=== PATIENT | female | born 2000 | race Two or more races ===

== ENCOUNTER 2022-12-18 17:39 | Observation (INO) | payer MEDICAID, OTHER ==
[~2022-12-18] VITALS: Ht 165.1 cm; Wt 72.6 kg
[2022-12-18] MEDS ORDERED: NIFEdipine 10 MG CAP PO ONE (19:30)
[2022-12-18] MEDS ORDERED: TERBUTALINE SULFATE 1 MG/ML 1ML VIAL SC SCH (19:30)
[2022-12-18] MEDS ORDERED: BETAMETHASONE ACET (30mg/5ml) 5ml Vial 6mg/ml IM ONE (20:15)
== END 2022-12-18 20:31 | disposition home or self-care (01) ==
LOC: LDRP 17:39 → EDBD 17:39
PROVIDERS: ADMIT Obstetrics & Gynecology; ATTEND Obstetrics & Gynecology
DX: O60.03 Preterm labor without delivery, third trimester (principal); O42.913 Preterm premature rupture of membranes, unspecified as to length of time between rupture and onset of labor, third trimester; Z3A.34 34 weeks gestation of pregnancy
CPT/HCPCS: 59025; 81002; 84112; G0378; Q0114

== ENCOUNTER 2022-12-21 13:29 | Observation (INO) | payer MEDICAID ==
[~2022-12-21] VITALS: Ht 165.1 cm; Wt 72.6 kg
== END 2022-12-21 16:30 | disposition home or self-care (01) ==
LOC: LDRP 13:29
PROVIDERS: ADMIT Obstetrics & Gynecology; ATTEND Obstetrics & Gynecology
DX: O60.03 Preterm labor without delivery, third trimester (principal); O42.913 Preterm premature rupture of membranes, unspecified as to length of time between rupture and onset of labor, third trimester; Z3A.35 35 weeks gestation of pregnancy; Z53.29 Procedure and treatment not carried out because of patient's decision for other reasons
CPT/HCPCS: 59025; 81002; 94760; G0378

== ENCOUNTER → 2022-12-23 | Outpatient (CLI) | payer MEDICAID ==
[2022-12-23 12:02] LABS: Basophils # (auto) 0.1 10 ^3/uL (0-0.2); Basophils % (auto) 0.9 % (0.0-2.0); Eosinophils # (auto) 0.1 10 ^3/uL (0-0.8); Eosinophils % (auto) 0.5 % (0.0-7.0); Hematocrit 39.1 % (36.0-46.0); Lymphocytes # (auto) 2.1 10 ^3/uL (0.4-5.4); Lymphocytes % (auto) 17.6 % (10.0-50.0); Mean Corpuscular Hemoglobin 28.3 pg (28.0-32.0); Mean Corpuscular Hgb Conc. 33.2 g/dL (32.0-36.0); Mean Corpuscular Volume 85.2 fL (80.0-100.0); Monocytes # (auto) 0.7 10 ^3/uL (0-1.3); Monocytes % (auto) 5.5 % (0.0-12.0); Neutrophils # (auto) 9.1 10 ^3/uL (1.6-8.6); Neutrophils % (auto) 75.5 % (37.0-80.0); Red Blood Cells 4.58 10^6/uL (4.0-5.20); Red Cell Distribution Width 12.9 % (11.8-14.3); White Blood Cell 12.1 10^3/uL (4.4-10.8)
[2022-12-24 07:06] LABS: RPR Non Reactive (Non Reactive)
== END | disposition home or self-care (01) ==
LOC: LAB 11:41
PROVIDERS: ATTEND Obstetrics & Gynecology
DX: Z34.00 Encounter for supervision of normal first pregnancy, unspecified trimester (principal); Z3A.00 Weeks of gestation of pregnancy not specified
CPT/HCPCS: 36415; 84112; 85025; 86592

== ENCOUNTER 2022-12-28 08:55 | Observation (INO) | payer MEDICAID | END 2022-12-28 09:59 | disposition home or self-care (01) | LOC: UNDOADMOB 08:55 → LDRP 08:55 → UNDODISOB 09:59 | PROVIDERS: ADMIT Obstetrics & Gynecology; ATTEND Obstetrics & Gynecology | DX: O60.03 Preterm labor without delivery, third trimester (principal); O62.9 Abnormality of forces of labor, unspecified; Z3A.36 36 weeks gestation of pregnancy | CPT/HCPCS: 59025; 81002; 94760; G0378 ==

== ENCOUNTER 2023-01-04 10:09 | Observation (INO) | payer MEDICAID | END 2023-01-04 10:47 | disposition home or self-care (01) | LOC: LDRP 10:09 | PROVIDERS: ADMIT Obstetrics & Gynecology; ATTEND Obstetrics & Gynecology | DX: O60.03 Preterm labor without delivery, third trimester (principal); Z3A.37 37 weeks gestation of pregnancy | CPT/HCPCS: 59025; 81002; G0378 ==

== ENCOUNTER 2023-01-23 10:09 | Observation (INO) | payer MEDICAID | END 2023-01-23 12:40 | disposition home or self-care (01) | LOC: LDRP 10:09 | PROVIDERS: ADMIT Obstetrics & Gynecology; ATTEND Obstetrics & Gynecology | DX: O36.8393 Maternal care for abnormalities of the fetal heart rate or rhythm, unspecified trimester, fetus 3 (principal); O48.0 Post-term pregnancy; Z3A.40 40 weeks gestation of pregnancy | CPT/HCPCS: 59025; 76818; 81002; 94760; G0378 ==

== ENCOUNTER 2023-01-24 11:40 | Observation (INO) | payer MEDICAID ==
[2023-01-25] MEDS ORDERED: PREN-96 PO (21:40)
== END 2023-01-24 14:07 | disposition home or self-care (01) ==
LOC: LDRP 11:40
PROVIDERS: ADMIT Obstetrics & Gynecology; ATTEND Obstetrics & Gynecology
DX: O48.0 Post-term pregnancy (principal); Z3A.40 40 weeks gestation of pregnancy
CPT/HCPCS: 59025; 76818; 81002; 94760; G0378

== ENCOUNTER 2023-01-25 20:16 | Observation (INO) | payer MEDICAID ==
[2023-01-25] MEDS ORDERED: PREN-96 PO (21:40)
[2023-01-25 22:09] LABS: Fern Testing Negative
== END 2023-01-25 22:37 | disposition home or self-care (01) ==
LOC: LDRP 20:16
PROVIDERS: ADMIT Obstetrics & Gynecology; ATTEND Obstetrics & Gynecology
DX: O48.0 Post-term pregnancy (principal); O62.9 Abnormality of forces of labor, unspecified; Z3A.40 40 weeks gestation of pregnancy
CPT/HCPCS: 59025; 81002; 84112; G0378; Q0114

== ENCOUNTER 2023-01-26 12:14 | Observation (INO) | payer MEDICAID ==
[~2023-01-26 12:14] MED LIST: PREN-96 PO
== END 2023-01-26 13:41 | disposition home or self-care (01) ==
LOC: LDRP 12:14 → UNDOADMOB 12:14 → LDRP 12:26
PROVIDERS: ADMIT Obstetrics & Gynecology; ATTEND Obstetrics & Gynecology
DX: O48.0 Post-term pregnancy (principal); O62.9 Abnormality of forces of labor, unspecified; Z3A.40 40 weeks gestation of pregnancy
CPT/HCPCS: 59025; 76818; 81002; 94760; G0378

== ENCOUNTER 2023-01-28 09:21 | Observation (INO) | payer MEDICAID | END 2023-01-28 15:14 | disposition home or self-care (01) | LOC: LDRP 13:10 → UNDOADMOB 13:10 → LDRP 13:16 | PROVIDERS: ADMIT Obstetrics & Gynecology; ATTEND Obstetrics & Gynecology | DX: O48.0 Post-term pregnancy (principal); Z3A.40 40 weeks gestation of pregnancy | CPT/HCPCS: 59025; 76818; 81002; 94760; G0378 ==

== ENCOUNTER 2023-01-30 09:23 | Observation (INO) | payer MEDICAID | END 2023-01-30 11:23 | disposition home or self-care (01) | LOC: LDRP 09:23 | PROVIDERS: ADMIT Obstetrics & Gynecology; ATTEND Obstetrics & Gynecology | DX: O48.0 Post-term pregnancy (principal); O62.9 Abnormality of forces of labor, unspecified; Z3A.41 41 weeks gestation of pregnancy | CPT/HCPCS: 59025; 76818; 81002; 94760; G0378 ==

== ENCOUNTER 2023-01-31 15:10 | Inpatient (IN) | payer MEDICAID ==
[~2023-01-31] VITALS: Ht 165.1 cm; Wt 74.8 kg
[2023-01-31] MEDS ORDERED: LACTATED RINGER'S 1,000 ML IV SCH (15:30)
[2023-01-31] MEDS ORDERED: LIDOCAINE 2%HCL (LOCAL ANESTH.) INJ 20ML MDV IJ PRN (15:30)
[2023-01-31] MEDS ORDERED: PROMETHAZINE HCL 25 MG/ML 1ML IM PRN (15:30)
[2023-01-31] MEDS ORDERED: DERMOPLAST 60ML BOTTLE TOP PRN (15:30)
[2023-01-31] MEDS ORDERED: WITCH HAZEL-GLYCERIN PAD TOP PRN (15:30)
[2023-01-31] MEDS ORDERED: PROMETHAZINE HCL 25 MG/ML 1ML IV PRN (15:30)
[2023-01-31] MEDS ORDERED: PHISODERM TOP SOLN 240ML BTL TOP PRN (15:30)
[2023-01-31 15:46] LABS: Basophils # (auto) 0.1 10 ^3/uL (0-0.2); Basophils % (auto) 0.8 % (0.0-2.0); Eosinophils # (auto) 0.1 10 ^3/uL (0-0.8); Eosinophils % (auto) 0.4 % (0.0-7.0); Hematocrit 38.3 % (36.0-46.0); Lymphocytes # (auto) 1.3 10 ^3/uL (0.4-5.4); Lymphocytes % (auto) 8.6 % (10.0-50.0); Mean Corpuscular Hemoglobin 28.5 pg (28.0-32.0); Mean Corpuscular Hgb Conc. 33.9 g/dL (32.0-36.0); Monocytes # (auto) 0.9 10 ^3/uL (0-1.3); Monocytes % (auto) 5.6 % (0.0-12.0); Neutrophils % (auto) 84.6 % (37.0-80.0); Red Blood Cells 4.56 10^6/uL (4.0-5.20); Red Cell Distribution Width 13.3 % (11.8-14.3); White Blood Cell 15.4 10^3/uL (4.4-10.8)
[2023-01-31 15:51] LABS: Urine Bacteria FEW /hpf (None Seen); Urine Blood 2+ /uL (Negative); Urine Clarity HAZY (Clear); Urine Color Colorless (Yellow); Urine Hyaline Cast FEW /lpf (0 - 2); Urine Protein, UAD TRACE (Negative); Urine Specific Gravity 1.012 (1.001-1.035); Urine Urobilinogen Normal (Negative); Urine WBC 6 /hpf (0 - 5)
[2023-01-31 16:03] LABS: Amphetamine Screen, Urine Neg (NEGATIVE); Barbiturate Scree,Urine Neg (NEGATIVE); Benzodiazephine Screen, Urine Neg (NEGATIVE); Cannabinoid Screen, Urine Neg (NEGATIVE); Cocaine Screen, Urine Neg (NEGATIVE); Opiate Scree,Urine Neg (NEGATIVE); Phencyclidine Screen, Urine Neg (NEGATIVE)
[2023-01-31 16:05] LABS: Alanine Aminotransferase 14 U/L (7-40); Alkaline Phosphatase 165 U/L (46-116); Aspartate Aminotransferase 16 U/L (13-40); Bilirubin, Total 0.4 mg/dL (0.2-1.0); Calcium 9.2 mg/dL (8.5-10.1); Chloride 109 mmol/L (98-107); Glucose 91 mg/dL (74-106); Potassium 3.9 mmol/L (3.5-5.1); Sodium 137 mmol/L (136-145); Total Protein 6.5 g/dL (5.7-8.2)
[2023-01-31 16:13] LABS: BUN/Creatinine Ratio 8.1 (10.0-20.0); Blood Urea Nitrogen < 5 mg/dL (9-23)
[2023-01-31] MEDS ORDERED: TERBUTALINE SULFATE 1 MG/ML 1ML VIAL SC PRN (16:15)
[2023-01-31] MEDS ORDERED: LACT. RINGERS/OXYTOCIN 20UNITS 500 ML IV ONE ×2 (16:15→16:45)
[2023-01-31] MEDS ORDERED: SODIUM CHLORIDE 0.9% 1,000 ML IV SCH (16:15)
[2023-01-31] MEDS: LACTATED RINGER'S 1,000 ML IV SCH ×3 (16:15→23:44)
[2023-01-31 16:27] LABS: INR 0.96 (0.9-1.15); Partial Thromboplastin Time 32.8 SEC (24.5-34.5); Prothrombin Time 10.1 sec (9.3-11.8)
[2023-01-31] MEDS: LACT. RINGERS/OXYTOCIN 20UNITS 1,000 ML IV SCH (16:45)
[2023-01-31] MEDS ORDERED: ePHEDrine SULFATE 50 MG/ML AMP IV ONE ×2 (19:30→20:45)
[2023-01-31] MEDS ORDERED: LACTATED RINGER'S 1,000 ML IV ONE (19:30)
[2023-01-31] MEDS ORDERED: NALOXONE HCL 0.4 MG/ML VIAL IV ONE ×2 (19:30→20:45)
[2023-01-31] MEDS ORDERED: fentaNYL CITRATE 100 MCG/2 ML VL IV ONE ×2 (19:30→20:45)
[2023-01-31] MEDS ORDERED: Lidocaine W-Epinephrine 1.5%-1:200,000 INJ 10ml Vial IJ ONE (19:30)
[2023-01-31] MEDS ORDERED: LIDOCAINE HCL 2 %PF INJ 10ML AMP IJ ONE (19:30)
[2023-01-31] MEDS ORDERED: ROPIVACAINE HCL 200 ML EPI SCH ×2 (19:30→20:45)
[2023-01-31] MEDS: ceFAZolin 1GM/50ML 50 ML IV SCH (20:38)
[2023-01-31] MEDS ORDERED: SODIUM CHLORIDE 0.9% 500 ML IV PRN (20:45)
[2023-01-31] MEDS ORDERED: LACTATED RINGER'S 500 ML IV ONE ×2 (20:45)
[2023-02-01] MEDS: ACETAMINOPHEN 325 MG TAB PO PRN ×3 (00:31→22:16)
[2023-02-01] MEDS: LACTATED RINGER'S 1,000 ML IV SCH (01:30)
[2023-02-01] MEDS: ceFAZolin 1GM/50ML 50 ML IV SCH (04:11)
[2023-02-01] MEDS: LACT. RINGERS/OXYTOCIN 20UNITS 1,000 ML IV SCH (08:45)
[2023-02-01] MEDS ORDERED: METHYLERGONOVINE MALEATE 0.2 MG/ML AMP IM ONE (10:03)
[2023-02-01] MEDS ORDERED: miSOPROStol 100 mcg TAB ONE (10:03)
[2023-02-01] MEDS ORDERED: ACETAMINOPHEN 325 MG TAB PO PRN (11:45)
[2023-02-01] MEDS ORDERED: ONDANSETRON ODT 4 MG TAB PO PRN (11:45)
[2023-02-01] MEDS ORDERED: IBUPROFEN 800 MG TAB PO SCH (11:45)
[2023-02-01] MEDS ORDERED: IBUPROFEN 600 MG TAB PO PRN (11:45)
[2023-02-01 15:30] VITALS: BP 118/70; PULSE 69; RESP 16; TEMP 98.4; O2SAT 97
[2023-02-01 19:10] VITALS: BP 93/52; PULSE 86; RESP 16; TEMP 99.2
[2023-02-01] MEDS ORDERED: DOCUSATE SOD 100 MG CAP PO SCH (22:00)
[2023-02-01 22:37] VITALS: BP 99/58; PULSE 71; RESP 16; TEMP 97.6
[2023-02-02 03:04] VITALS: BP 99/56; PULSE 81; RESP 16; TEMP 98.7
[2023-02-02 06:53] VITALS: BP 100/54; PULSE 70; RESP 17; TEMP 98.3; O2SAT 97
[2023-02-02 07:06] LABS: RPR Non Reactive (Non Reactive)
[2023-02-02 10:45] VITALS: BP 93/53; PULSE 81; RESP 17; TEMP 98.4; O2SAT 97
[2023-02-03 20:06] LABS: Treponema pallidum Ab (FTA-Ab) Non Reactive (Non Reactive)
== END 2023-02-02 14:37 | disposition home or self-care (01) | DRG 560 ==
LOC: LDRP 15:10
PROVIDERS: ADMIT Obstetrics & Gynecology; ATTEND Obstetrics & Gynecology
PROC: 10E0XZZ Delivery of Products of Conception, External Approach (ICD-10-PCS; principal; 2023-02-01)
PROC: 3E0R3BZ Introduction of Anesthetic Agent into Spinal Canal, Percutaneous Approach (ICD-10-PCS; 2023-02-01)
PROC: 00HU33Z Insertion of Infusion Device into Spinal Canal, Percutaneous Approach (ICD-10-PCS; 2023-02-01)
PROC: 0W8NXZZ Division of Female Perineum, External Approach (ICD-10-PCS; 2023-02-01)
PROC: 0KQM0ZZ Repair Perineum Muscle, Open Approach (ICD-10-PCS; 2023-02-01)
DX: O70.1 Second degree perineal laceration during delivery (principal); Z37.0 Single live birth; Z3A.41 41 weeks gestation of pregnancy
CPT/HCPCS: 36415; 59025; 59409; 80053; 80307; 81001; 81002; 85025; 85610; 85730; 86592; 86850; 86900; 86901; 94762; 96360; 96361; 96365; 96366; 96374; 96375; G0378; J0690; J2590

== ENCOUNTER 2023-06-26 13:04 | Emergency (ER) | payer MEDICAID ==
[~2023-06-26] VITALS: Ht 165.1 cm; Wt 60.2 kg
[2023-06-26 13:49] VITALS: BP 119/56; PULSE 110; RESP 16; TEMP 99.7; O2SAT 98
[2023-06-26] MEDS ORDERED: methylPREDNISolone SOD SUCC 125 MG/2 ML VL IM ONE (14:15)
[2023-06-26] MEDS ORDERED: EPINEPHrine HCL 1 MG/1 ML AMP SC ONE (14:15)
[2023-06-26] MEDS ORDERED: PRED20TA2 PO (14:23)
[2023-06-26] MEDS ORDERED: HYDR25CA PO (14:23)
[2023-06-26] MEDS ORDERED: TRIA0.02 TOP (14:23)
== END 2023-06-26 14:51 | disposition home or self-care (01) ==
LOC: ER 13:04
DX: T78.40XA Allergy, unspecified, initial encounter (principal); Z79.899 Other long term (current) drug therapy; Y92.89 Other specified places as the place of occurrence of the external cause
CPT/HCPCS: 96372; 99284; J0171; J2930

== ENCOUNTER 2024-10-07 19:16 | Observation (INO) | payer MEDICAID ==
[~2024-10-07] VITALS: Ht 65 cm; Wt 71.7 kg
[~2024-10-07 19:16] MED LIST changes: +HYDR25CA PO; +PRED20TA2 PO; +TRIA0.02 TOP
[2024-10-07 20:01] LABS: Basophils # (auto) 0.1 10 ^3/uL (0-0.2); Basophils % (auto) 0.7 % (0.0-2.0); Eosinophils # (auto) 0.2 10 ^3/uL (0-0.8); Eosinophils % (auto) 1.5 % (0.0-7.0); Hematocrit 40.2 % (36.0-46.0); Hemoglobin 13.7 g/dL (12.2-16.2); Lymphocytes # (auto) 2.1 10 ^3/uL (0.4-5.4); Lymphocytes % (auto) 18.8 % (10.0-50.0); Mean Corpuscular Hemoglobin 29.4 pg (28.0-32.0); Mean Corpuscular Hgb Conc. 34.1 g/dL (32.0-36.0); Mean Corpuscular Volume 86.3 fL (80.0-100.0); Monocytes # (auto) 0.6 10 ^3/uL (0-1.3); Monocytes % (auto) 5.9 % (0.0-12.0); Neutrophils % (auto) 73.1 % (37.0-80.0); Nucleated Red Blood Cells % 0.1 %; Platelet Count (auto) 185 10^3/uL (140-450); Red Blood Cells 4.66 10^6/uL (4.0-5.20); Red Cell Distribution Width 12.9 % (11.8-14.3)
[2024-10-07 20:03] LABS: Urine Bacteria MOD /hpf (None Seen); Urine Blood Negative /uL (Negative); Urine Clarity Turbid (Clear); Urine Color Colorless (Yellow); Urine Protein, UAD Negative (Negative); Urine Specific Gravity 1.007 (1.001-1.035); Urine Squamous Epithelial Cell FEW /hpf (<5); Urine Urobilinogen Normal (Negative); Urine WBC 6 /HPF (0-5); Urine pH 7.5 (5.0-9.0)
[2024-10-07 20:12] LABS: Protein, Urine 6.1 mg/dL (1-14)
[2024-10-07 20:15] LABS: Creatinine, Urine 26.88 mg/dL (30.0-125.0); Urine Protein/Creatinine Ratio 0.23
[2024-10-07 20:16] LABS: INR 0.92 (0.9-1.15); Partial Thromboplastin Time 32.2 SEC (24.5-34.5); Prothrombin Time 9.8 sec (9.3-11.8)
[2024-10-07 20:20] LABS: Alanine Aminotransferase 13 U/L (7-40); Albumin 4.1 g/dL (3.2-4.8); Alkaline Phosphatase 77 U/L (46-116); Anion Gap 8 (5-15); Aspartate Aminotransferase 13 U/L (13-40); BUN/Creatinine Ratio 10.9 (10.0-20.0); Calcium 9.5 mg/dL (8.7-10.4); Carbon Dioxide 23 mmol/L (20-31); Potassium 3.9 mmol/L (3.5-5.1); Sodium 140 mmol/L (136-145); Total Protein 6.3 g/dL (5.7-8.2)
[2024-10-07 20:24] LABS: Bilirubin, Total 0.2 mg/dL (0.2-1.0); Blood Urea Nitrogen 6 mg/dL (9-23); Chloride 109 mmol/L (98-107); Glucose 109 mg/dL (74-106); Uric Acid 2.6 mg/dL (3.1-7.8)
--- NOTE | 2024-10-08 08:01 | DVHDS2 ---
Discharge Summary Date of Admission October 07, 2024 at 19:16 Date of Discharge: October 07, 2024 Labs/Diagnostic Data: Laboratory Results Test 10/07/24 19:52 10/07/24 19:47 White Blood Count 11.0 10^3/uL (4.4-10.8) Red Blood Count 4.66 10^6/uL (4.0-5.20) Hemoglobin 13.7 g/dL (12.2-16.2) Hematocrit 40.2 % (36.0-46.0) Mean Corpuscular Volume 86.3 fL (80.0-100.0) Mean Corpuscular Hemoglobin 29.4 pg (28.0-32.0) Mean Corpuscular Hemoglobin Concent 34.1 g/dL (32.0-36.0) Red Cell Distribution Width 12.9 % (11.8-14.3) Platelet Count 185 10^3/uL (140-450) Mean Platelet Volume 9.4 fL (6.9-10.8) Neutrophils (%) (Auto) 73.1 % (37.0-80.0) Lymphocytes (%) (Auto) 18.8 % (10.0-50.0) Monocytes (%) (Auto) 5.9 % (0.0-12.0) Eosinophils (%) (Auto) 1.5 % (0.0-7.0) Basophils (%) (Auto) 0.7 % (0.0-2.0) Neutrophils # (Auto) 8.0 10 ^3/uL (1.6-8.6) Lymphocytes # (Auto) 2.1 10 ^3/uL (0.4-5.4) Monocytes # (Auto) 0.6 10 ^3/uL (0-1.3) Eosinophils # (Auto) 0.2 10 ^3/uL (0-0.8) Basophils # (Auto) 0.1 10 ^3/uL (0-0.2) Nucleated Red Blood Cells 0.1 % Prothrombin Time 9.8 sec (9.3-11.8) Prothrombin Time INR 0.92 (0.9-1.15) Activated Partial Thromboplast Time 32.2 SEC (24.5-34.5) Sodium Level 140 mmol/L (136-145) Potassium Level 3.9 mmol/L (3.5-5.1) Chloride Level 109 mmol/L (98-107) Carbon Dioxide Level 23 mmol/L (20-31) Anion Gap 8 (5-15) Blood Urea Nitrogen 6 mg/dL (9-23) Creatinine 0.55 mg/dL (0.550-1.02) Glomerular Filtration Rate Calc 133 mL/min (>90) BUN/Creatinine Ratio 10.9 (10.0-20.0) Serum Glucose 109 mg/dL (74-106) Uric Acid 2.6 mg/dL (3.1-7.8) Calcium Level 9.5 mg/dL (8.7-10.4) Total Bilirubin 0.2 mg/dL (0.2-1.0) Aspartate Amino Transferase (AST) 13 U/L (13-40) Alanine Aminotransferase (ALT) 13 U/L (7-40) Alkaline Phosphatase 77 U/L (46-116) Total Protein 6.3 g/dL (5.7-8.2) Albumin 4.1 g/dL (3.2-4.8) Urine Color Colorless (Yellow) Urine Clarity Turbid (Clear) Urine pH 7.5 (5.0-9.0) Urine Specific [place] 1.007 (1.001-1.035) Urine Protein Negative (Negative) Urine Ketones Negative (Negative) Urine Blood Negative /uL (Negative) Urine Nitrite Negative (Negative) Urine Bilirubin Negative (Negative) Urine Urobilinogen Normal mg/dL (Negative) Urine Leukocyte Esterase 3+ /uL (Negative) Urine RBC 1 /hpf (0 - 4) Urine Microscopic WBC 6 /HPF (0-5) Urine Squamous Epithelial Cells Few /hpf (<5) Urine Bacteria Mod /hpf (None Seen) Urine Creatinine 26.88 mg/dL (30.0-125.0) Urine Protein/Creatinine Ratio 0.23 Urine Glucose 1+ mg/dL (Normal) Urine Total Protein 6.1 mg/dL (1-14) Other Laboratory Tests 10/07/24 19:52 Brief Hx & Hospital Course: Patient had a headache 31 week here for evaluation rule out PIH Condition at Discharge: Good Final Diagnosis/Problems List Veress 31 week reassuring no evidence PIHmucous information Discharge Disposition: Home Discharge Instruct/Medications Diet: Regular Activity: No Restrictions, As Tolerated Discharge Statement: "Patient was advised to return to the ER or call 911 if any headaches, dizziness, shortness of breath, chest pain, abdominal pain, bleeding, fevers, or worsening of medical condition. Patient was counseled about treatment plan, medications, possible side effects, patientverbalized understanding. All questions were answered to the best of my ability. This discharge took greater then 30 minutes in planning, reviewing documentation, counseling the patient, and discussing with other team members." ASSESSMENT ASSESSMENT Assessment Visit Coding OBGYN Date of Service: October 08, 2024 Billing Provider: TERA KERN DO [employer] Common Visit Codes: 52718-QGF/OBS SAME DATE (LOW), 78477-JWK/OBS SAME DATE (MOD) (It is she is the senior external), 35090-PXC/OBS SAME DATE (HIGH) [employer] Procedure Codes: 91910-58- NON-STRESS TEST TERA KERN DO October 08, 2024 08:01
== END 2024-10-07 21:16 | disposition home or self-care (01) ==
LOC: LDRP 19:16
PROVIDERS: ADMIT Obstetrics & Gynecology; ATTEND Obstetrics & Gynecology
DX: O26.893 Other specified pregnancy related conditions, third trimester (principal); R51.9 Headache, unspecified; R79.1 Abnormal coagulation profile; Z98.890 Other specified postprocedural states; Z79.899 Other long term (current) drug therapy; Z3A.00 Weeks of gestation of pregnancy not specified
CPT/HCPCS: 36415; 59025; 80053; 81001; 82570; 84156; 84550; 85025; 85610; 85730; 94760; G0378

== ENCOUNTER 2024-12-09 12:05 | Observation (INO) | payer MEDICAID ==
--- NOTE | 2024-12-09 13:01 | DVH ---
CLINICAL HISTORY: term COMPARISON: US BIOPHYSICAL PROFILE on DOS: 01/30/23, US BIOPHYSICAL PROFILE on DOS: 01/28/23, US BIOPHY SICAL PROFILE on DOS: 01/26/23 TECHNIQUE: biophysical profile was performed. Transabdominal sonographic images of the fetus we re obtained. FINDINGS: The fetus is in cephalic position. heart rate measures 126 BPM. Amniotic fluid index measures 12.6 cm. The placenta is posterior in position without evidence of previa or abruption seen. BPP profile is an overall score of 8/8, with 2/2 points for breathing, with at least one episode of breathing over a 30 second duration during a 30 minute observation, 2/2 points for m ovements, with 3 or more discrete body or limb movements, 2/2 points for tone, with one or more episodes of extremity extension with return to flexion, or opening and closing of hand, and 2/ 2 points for amniotic fluid, with at least 1 pocket of amniotic fluid that measures 2 cm in 2 perpend icular planes. IMPRESSION: BPP score of 8/8.
--- NOTE | 2024-12-10 08:19 | DVHDS2 ---
Physician Discharge Progress N Final Diagnosis: IUP AT 40WKS Operations or Procedures: Operations or Procedures NST REACTIVE REVIWED,SONO Condition on Discharge: Good Disposition: Home Discharge Instructions: Diet: Regular Activity: No Restrictions, As Tolerated Medications: NA Follow Up Care: Specialist: 2D Discharge Statement: "Patient was advised to return to the ER or call 911 if any headaches, dizziness, shortness of breath, chest pain, abdominal pain, bleeding, fevers, or worsening of medical condition. Patient was counseled about treatment plan, medications, possible side effects, patientverbalized understanding. All questions were answered to the best of my ability. This discharge took greater then 30 minutes in planning, reviewing documen tation, counseling the patient, and discussing with other team members." Visit Coding OBGYN Date of Service: Dec 09, 2024 Billing Provider: MERRY HAWLEY DO VIDEO TAPE DUPLICATOR Common Visit Codes: [id number] OBS CARE (HIGH) VIDEO TAPE DUPLICATOR Procedure Codes: 27473-51- NON-STRESS TEST MERRY HAWLEY DO Dec 10, 2024 08:19
== END 2024-12-09 14:04 | disposition home or self-care (01) ==
LOC: LDRP 12:05
PROVIDERS: ADMIT Obstetrics & Gynecology; ATTEND Obstetrics & Gynecology
DX: Z36.89 Encounter for other specified antenatal screening (principal); Z79.899 Other long term (current) drug therapy; Z3A.40 40 weeks gestation of pregnancy; Z98.890 Other specified postprocedural states
CPT/HCPCS: 59025; 76819; 81002; G0378

== ENCOUNTER 2024-12-10 21:34 | Inpatient (IN) | payer MEDICAID ==
[~2024-12-10] VITALS: Ht 165.1 cm; Wt 74.8 kg
[2024-12-10] MEDS ORDERED: NALBUPHINE HCL 10 MG/1ml INJECTION IV PRN (22:30)
--- NOTE | 2024-12-10 22:32 | DVHHP2 ---
OB CC & HPI Date Date of Admission: Dec 10, 2024 Patient Identification: : 2 Para: 1 EDC: Dec 09, 2024 EGA: 40w 1d Chief Complaints: Reason for admission: active labor Admission Nurse Assessment Rev: Yes History of Present Complaints 24yo G2, 1001 with EDC of 12/09/24, EGA 40w 1d, presents to Place with h/o contractions that started about 4 hours ago. She reports normal movements, no bleeding, ROM, FAJARDO vision changes or epigastric pain. Past Medical History Cardiac: No pertinent Hx Pulmonary: No pertinent Hx Central Nervous System: No pertinent Hx GI: No pertinent Hx Hemotology/Oncology: No pertinent Hx Hepatobiliary: No pertinent Hx Psychiatric: No pertinent Hx Musculoskeletal: No pertinent Hx Rheumotologic: No pertinent Hx Infectious Disease: No peritnent Hx ENT: No pertinent Hx Renal/: No pertinent Hx Endocrine: No pertinent Hx Dermatology: No pertinent Hx Past Surgical History: No pertinent Hx OB History OB History Care: Good Care Ultrasounds: Normal mid trimester US Obstetrical Complications: None Medical Complications: None Allergies: Coded Allergies: Ibuprofen (Verified Allergy, Intermediate, mouth and lips swell, 12/10/24) Home Meds Active Scripts Triamcinolone Acetonide (Triamcinolone Acetonide) 0.025 % Cre, 1 APPLIC TOP BID, #45 GRAMS Prov:REID JOSHUA 06/26/23 Prednisone (Prednisone) 20 Mg Tab, 40 MG PO DAILY for 10 Days, #20 MG Prov:REID JOSHUA 06/26/23 Hydroxyzine Pamoate (Vistaril) 25 Mg Cap, 1 CAP PO BID, #30 CAP Prov:REID JOSHUA 06/26/23 Reported Medications Vit W/ Ferrous Fumara ( One Daily) Daily Tab, 1 TAB PO DAILY, #90 TAB 3 Refills 01/25/23 Family & Social History Family/Social History Past Family/Social History: None Pertinent Blood Type: O+ Rubella: immune RPR/VDRL: Negative GBS Status: Negative HBsAG: Negative Review of Systems Constitutional: No symptom reported Ears, Nose, & Throat: No symptom reported Eyes: No symptom reported Pulmonary/Respiratory: No symptom reported Cardiovascular: No symptom reported Gastrointestinal: No symptom reported Genitourinary: No symptom reported Musculoskeletal: No symptom reported Skin: No symptom reported Psychiatric: No symptom reported Endocrine: No symptom reported Hemotologic/Lymphatic: No symptom reported All Other Systems Reproductive: Uterine Contractions OB Admission Exam Physical Exam Vitals: VSS HEENT: TMs Normal, Fontanelles Normal, Nasal Mucosa Normal, Eyes non-injected, Oropharynx Normal, PERRLA, Moist Membranes, EOMI Heart: Rhythm Normal Lungs: Clear Abdomen: Gravid (non-tender) Extremities: Normal Reflexes: Normal Cervical Dilatation: 5cm Effacement: 75% Station: -2 Membranes: Intact Heart Rate: 130's Accelerations: Accelerations Present Decelerations: No Decelerations Fpc Variability: Average (6-25) Contractions on Admission: 6-10 Minutes Apart Date/Time Contractions Began: 12/10/24 5pm Frequency of Contractions: every 5min Duration: 60secs Intensity: Moderate OB Plan Plan Admitting Diagnosis: IUP at 40w 1d Labor GBS Neg Category I FHR Tracing Plan: Expectant Management Other Plan: P Plan of care discussed with Patient and partner / family Process, Risks, benefits, of available management options discussed, including starting with expectant management, augmentation if indicated, Internal monitoring of UCs & FHT, AROM, amnioinfusion etc only when indicated Patient agrees to starting with expectant management at this time; other interventions as indicated Informed Consent obtained Consent for possible blood transfusion obtained. All questions answered. Admit to Place for Labor / IOL Routine L&D Admission orders EFM per policy Intrauterine resuscitation PRN Labor analgesia PRN Encourage ambulation and/exercises / frequent position change to facilitate labor & descent Supportive care Anticipate CNM will consult with Dr. Meadows PRN Visit Coding OBGYN Date of Service: Dec 10, 2024 Billing Provider: NICOLE DAILEY CNM 911 DISPATCHER Common Visit Codes: [id number] INP/OBS CARE (HIGH) 911 DISPATCHER Procedure Codes: 51586-65- NON-STRESS TEST NICOLE DAILEY CNM Dec 10, 2024 22:32
[2024-12-10 22:59] LABS: Urine Amorphous Crystal FEW /hpf (None Seen); Urine Protein, UAD Negative (Negative)
[2024-12-10 23:00] LABS: Hematocrit 39.6 % (36.0-46.0); Hemoglobin 13.5 g/dL (12.2-16.2); Mean Corpuscular Hemoglobin 29.5 pg (28.0-32.0); Mean Corpuscular Volume 86.1 fL (80.0-100.0); Nucleated Red Blood Cells % 0.0 %
[2024-12-10 23:15] LABS: INR 0.92 (0.9-1.15); Partial Thromboplastin Time 31.0 SEC (24.5-34.5); Prothrombin Time 9.8 sec (9.3-11.8)
[2024-12-10 23:15] LABS: Amphetamine Screen, Urine Neg (NEGATIVE); Barbiturate Scree,Urine Neg (NEGATIVE); Benzodiazephine Screen, Urine Neg (NEGATIVE); Cannabinoid Screen, Urine Neg (NEGATIVE); Cocaine Screen, Urine Neg (NEGATIVE); Opiate Scree,Urine Neg (NEGATIVE); Phencyclidine Screen, Urine Neg (NEGATIVE)
[2024-12-10 23:17] LABS: Alanine Aminotransferase 15 U/L (7-40); Albumin 4.1 g/dL (3.2-4.8); Anion Gap 11 (5-15); BUN/Creatinine Ratio 11.8 (10.0-20.0); Bilirubin, Total 0.4 mg/dL (0.2-1.0); Calcium 9.1 mg/dL (8.7-10.4); Glucose 91 mg/dL (74-106); Potassium 3.7 mmol/L (3.5-5.1); Sodium 139 mmol/L (136-145); Total Protein 6.4 g/dL (5.7-8.2)
[2024-12-10 23:22] LABS: Alkaline Phosphatase 124 U/L (46-116); Blood Urea Nitrogen 8 mg/dL (9-23); Carbon Dioxide 20 mmol/L (20-31); Chloride 108 mmol/L (98-107)
[2024-12-11] MEDS ORDERED: Lidocaine W-Epinephrine 1.5%-1:200,000 INJ 10ml Vial IJ ONE (00:30)
[2024-12-11] MEDS ORDERED: NALOXONE HCL 0.4 MG/ML VIAL IV ONE (00:30)
[2024-12-11] MEDS ORDERED: fentaNYL CITRATE 100 MCG/2 ML VL IV ONE (00:30)
[2024-12-11] MEDS ORDERED: LIDOCAINE HCL 2 %PF INJ 10ML AMP IJ ONE (00:30)
[2024-12-11] MEDS ORDERED: LACT. RINGERS/OXYTOCIN 20UNITS 1,000 ML IV ONE (00:31)
[2024-12-11] MEDS: WITCH HAZEL-GLYCERIN PAD TOP PRN (01:03)
[2024-12-11] MEDS: PHISODERM TOP SOLN 240ML BTL TOP PRN (01:03)
[2024-12-11] MEDS: DERMOPLAST 60ML BOTTLE TOP PRN (01:03)
[2024-12-11] MEDS: LIDOCAINE 2%HCL (LOCAL ANESTH.) INJ 20ML MDV IJ PRN (01:04)
[2024-12-11] MEDS: LACT. RINGERS/OXYTOCIN 20UNITS 500 ML IV ONE ×2 (01:05→01:06)
--- NOTE | 2024-12-11 01:05 | DVHPN2 ---
OB Labor Progress Note Date and Time Seen Date Seen: Dec 11, 2024 Time Seen: 00:20 Subjective Patient reports: Other (contractions and pressure feels stronger) Objective Vital Signs VSS Monitoring Method Monitoring Method: External Heart Rate Heart Rate Baseline: 130 Heart Rate Variability: Moderate Presence of FHR Accelerations: Yes Presence of FHR Decelerations: No Changes in Trends of Patterns: No Are all 5 Components of the FH: Yes Contractions Contractions Frequency: Other (2-3minutes) Duration of Contraction: 90 Contractions Intensity: Strong Contractions Resting Tone: Relaxed Membranes Membranes: Intact, Bulging Vaginal Exam Vag Exam Deferred: No Vaginal Exam Dilation: 8 Vaginal Exam Effacement: 100 Vaginal Exam Station: -1 Vaginal Exam Presentation: VTX Vaginal Exam Show: Small Medications Medications - Pitocin: No Medication - Epidural: No Medication - Other none Lab Results Lab Results Vital Signs Date Time Temp Pulse Resp B/P (MAP) Pulse Ox O2 Delivery O2 Flow Rate FiO2 12/11/24 03:00 98.8 81 16 110/59 (76) 96 98.8 12/11/24 02:30 Room Air I & O 12/11/24 07:00 Intake Total 1000 ml Output Total 900 ml Balance 100 ml Intake Oral 1000 ml Output Urine Total 900 ml Current Medications Medications (Trade) Dose Ordered Sig/Jayesh Start Time Stop Time Status Last Admin Dose Admin Lactated Ringer's 1,000 ml @ 125 mls/hr Q8H 12/10/24 22:30 12/11/24 01:07 125 MLS/HR Nalbuphine HCl (Nubain) 10 mg Q4HP PRN 12/10/24 22:30 Tana Ramos (Tucks) 1 pad PRN PRN 12/10/24 22:30 12/11/24 01:03 1 PAD Sodium Lauryl Sulfate (Phisoderm) 240 ml PRN PRN 12/10/24 22:30 12/11/24 01:03 240 ML Benzocaine (Dermoplast) 1 applic PRN PRN 12/10/24 22:30 12/11/24 01:03 1 APPLIC Lidocaine HCl (Xylocaine) 40 ml ONCE PRN 12/10/24 22:30 12/11/24 01:04 20 ML Naloxone HCl (Narcan) 0.2 mg PRN ONCE 12/11/24 00:30 12/11/24 00:31 DC Ephedrine Sulfate (ePHEDrine SULFATE) 10 mg PRN ONCE 12/11/24 00:30 12/11/24 00:31 DC Fentanyl Citrate 100 mcg ONCE ONCE 12/11/24 00:30 12/11/24 00:31 DC Lidocaine HCl (Xylocaine-Pf 2% Injection) 20 ml ONCE ONCE 12/11/24 00:30 12/11/24 00:31 DC Lidocaine/ Epinephrine (Xylocaine-Mpf/ Epinephrine 1.5 %-1:[id number]) 10 ml ONCE ONCE 12/11/24 00:30 12/11/24 00:31 DC Oxytocin 500 ml @ 999 mls/hr Q31M ONCE 12/11/24 00:30 12/11/24 01:00 DC 12/11/24 01:05 999 MLS/HR Oxytocin 500 ml @ 125 mls/hr Q4H ONCE 12/11/24 01:00 12/11/24 04:59 DC 12/11/24 01:06 125 MLS/HR Methylergonovine Maleate (Methergine) 0.2 mg ONCE ONCE 12/11/24 01:30 12/11/24 01:31 DC Acetaminophen (Tylenol Tablet) 650 mg Q4HP PRN 12/11/24 05:45 Ondansetron HCl (Zofran Po) 4 mg Q4HPRN PRN 12/11/24 05:45 Docusate Sodium (Colace Capsule) 200 mg HS 12/11/24 22:00 Laboratory Tests Test 12/10/24 22:40 12/10/24 22:15 Range/Units White Blood Count 11.1 H 4.4-10.8 10^3/uL Red Blood Count 4.60 4.0-5.20 10^6/uL Hemoglobin 13.5 12.2-16.2 g/dL Hematocrit 39.6 36.0-46.0 % Mean Corpuscular Volume 86.1 80.0-100.0 fL Mean Corpuscular Hemoglobin 29.5 28.0-32.0 pg Mean Corpuscular Hemoglobin Concent 34.2 32.0-36.0 g/dL Red Cell Distribution Width 13.5 11.8-14.3 % Platelet Count 165 140-450 10^3/uL Mean Platelet Volume 10.8 6.9-10.8 fL Neutrophils (%) (Auto) 77.4 37.0-80.0 % Lymphocytes (%) (Auto) 15.5 10.0-50.0 % Monocytes (%) (Auto) 5.8 0.0-12.0 % Eosinophils (%) (Auto) 0.8 0.0-7.0 % Basophils (%) (Auto) 0.5 0.0-2.0 % Neutrophils # (Auto) 8.6 1.6-8.6 10 ^3/uL Lymphocytes # (Auto) 1.7 0.4-5.4 10 ^3/uL Monocytes # (Auto) 0.6 0-1.3 10 ^3/uL Eosinophils # (Auto) 0.1 0-0.8 10 ^3/uL Basophils # (Auto) 0.1 0-0.2 10 ^3/uL Nucleated Red Blood Cells 0.0 % Prothrombin Time 9.8 9.3-11.8 sec Prothrombin Time INR 0.92 0.9-1.15 Activated Partial Thromboplast Time 31.0 24.5-34.5 SEC Sodium Level 139 136-145 mmol/L Potassium Level 3.7 3.5-5.1 mmol/L Chloride Level 108 H 98-107 mmol/L Carbon Dioxide Level 20 20-31 mmol/L Anion Gap 11 5-15 Blood Urea Nitrogen 8 L 9-23 mg/dL Creatinine 0.68 0.550-1.02 mg/dL Glomerular Filtration Rate Calc 126 >90 mL/min BUN/Creatinine Ratio 11.8 10.0-20.0 Serum Glucose 91 74-106 mg/dL Calcium Level 9.1 8.7-10.4 mg/dL Total Bilirubin 0.4 0.2-1.0 mg/dL Aspartate Amino Transferase (AST) 20 13-40 U/L Alanine Aminotransferase (ALT) 15 7-40 U/L Alkaline Phosphatase 124 H 46-116 U/L Total Protein 6.4 5.7-8.2 g/dL Albumin 4.1 3.2-4.8 g/dL Treponema pallidum Antibody Non-reactive Negative Hepatitis C Antibody Negative Negative Urine Color Colorless Yellow Urine Clarity Clear Clear Urine pH 6.5 5.0-9.0 Urine Specific [place] 1.006 1.001-1.035 Urine Protein Negative Negative Urine Ketones Negative Negative Urine Blood Trace H Negative /uL Urine Nitrite Negative Negative Urine Bilirubin Negative Negative Urine Urobilinogen Normal Negative mg/dL Urine Leukocyte Esterase Negative Negative /uL Urine RBC 1 0 - 4 /hpf Urine Microscopic WBC 2 0-5 /HPF Urine Squamous Epithelial Cells Few <5 /hpf Urine Amorphous Crystals Few None Seen /hpf Urine Bacteria Few H None Seen /hpf Urine Glucose Normal Normal mg/dL Urine Opiates Screen Neg NEGATIVE Urine Fentanyl Screen Neg NEGATIVE Urine Barbiturates Screen Neg NEGATIVE Urine Phencyclidine Screen Neg NEGATIVE Urine Amphetamines Screen Neg NEGATIVE Urine Benzodiazepines Screen Neg NEGATIVE Urine Cocaine Screen Neg NEGATIVE Urine Cannabinoids Screen Neg NEGATIVE Chlamydia trachomatis (BARRY) Pending Neisseria gonorrhoeae (BARRY) Pending Assessment Assessment IUP at 40w 2d Active Labor Category 1 FHR Tracing Plan Plan Labor analgesia ( pt wants epidural; Anesthesia Provider en-route at this time) Continue EFM Intrauterine resuscitation PRN Supportive care Anticipate Plan discussed with: Patient, Spouse Visit Coding OBGYN Date of Service: Dec 11, 2024 Billing Provider: NICOLE DALIEY CNM [employer]ER Common Visit Codes: [id number] INP/OBS CARE(HIGH) [employer]ER Procedure Codes: 78577-56- NON-STRESS TEST NICOLE DAILEY CNM Dec 11, 2024 01:05
[2024-12-11] MEDS: LACTATED RINGER'S 1,000 ML IV SCH (01:07)
--- NOTE | 2024-12-11 01:11 | LDN2 ---
Labor and Delivery Note Date 12/11/24 Age 24 2 Para 1 AB 0 EDC 12/09/24 EGA 40w 2d Diagnosis IUP at 40w 2d 2nd stage of labor Vaginal Delivery: VTX Vacuum Assisted: No Placenta: Spontaneous Sex: Female Weight 3035g (6Lbs 11oz) Apgars 8 @one minute, 9@ 5minutes of life Nuchal Cord Transected: No (Loose nuchal cord, reduced) Amniotic Fluid: Clear Episiotomy: No Extension: No (1cm linear abrasion noted in right labium; requires no repair) EBL 250mL Labs Blood Bank 01/31/23 15:29: Blood Type O POSITIVE Complications None Conditions Mother and baby stable Tack Picker Naldo Comments/Significant Med Yaquelin At 0032, 24yo, now delivered a viable Female infant by w/ score 8 at one minute & 9 at five minutes of life. HILTON position. Loose nuchal cord, same reduced following delivery of the head. Infant placed skin to skin on pts chest. Cord clamped and cut after pulsation ceased. Cord blood sent. Intact 3- vessel cord placenta delivered spontaneously, Emma. Pitocin IV bolus started. Placenta sent to pathology. About 1cm linear abrasion noted in right labium; same does not require repair, no bleeding. Fundus at U, firm, midline, and light lochia. EBL 250ml. VSS. Count correct x2. Patient to care and baby to couplet care Visit Coding OBGYN Date of Service: Dec 11, 2024 Billing Provider: NICOLE DAILEY CNM DAIRY SCIENCE TEACHER Common Visit Codes: PROCEDURE ONLY DAIRY SCIENCE TEACHER Procedure Codes: 32725-26- NON-STRESS TEST, 14122-ACY DELIVERY ONLY NICOLE DAILEY CNM Dec 11, 2024 01:11
[2024-12-11] MEDS: METHYLERGONOVINE MALEATE 0.2 MG/ML AMP IM ONE (01:24)
[2024-12-11] MEDS ORDERED: METHYLERGONOVINE MALEATE 0.2 MG/ML AMP IM ONE (01:30)
[2024-12-11 03:00] VITALS: BP 110/59; PULSE 81; RESP 16; TEMP 98.8; O2SAT 96
[2024-12-11] MEDS ORDERED: ONDANSETRON ODT 4 MG TAB PO PRN (05:45)
--- NOTE | 2024-12-11 06:59 | DVHPN2 ---
Progress Note Date Seen: Dec 11, 2024 Subjective S: Lochia minimal Tolerating regular diet well. Ambulating and voiding well w/o feeling lightheaded or dizzy. Passing flatus but no BM yet. Breast feeding. Contraceptive plan: Desires and requests to be discharged home today or tomorrow vital signs Vital Sign Date Time Temp Pulse Resp B/P (MAP) Pulse Ox O2 Delivery O2 Flow Rate FiO2 12/11/24 03:00 98.8 81 16 110/59 (76) 96 98.8 12/11/24 02:30 Room Air Total Intake and Output 12/10/24 12/10/24 12/11/24 15:00 23:00 07:00 Intake Total 1000 ml Output Total 900 ml Balance 100 ml medications Current Medications Medications Dose Ordered Sig/Jayesh Route Start Time Stop Time Status Last Admin Dose Admin Lactated Ringer's 1,000 ml @ 125 mls/hr Q8H IV 12/10/24 22:30 12/11/24 01:07 125 MLS/HR Nalbuphine HCl 10 mg Q4HP PRN IV 12/10/24 22:30 Witch Rachel 1 pad PRN PRN TOP 12/10/24 22:30 12/11/24 01:03 1 PAD Sodium Lauryl Sulfate 240 ml PRN PRN TOP 12/10/24 22:30 12/11/24 01:03 240 ML Benzocaine 1 applic PRN PRN TOP 12/10/24 22:30 12/11/24 01:03 1 APPLIC Lidocaine HCl 40 ml ONCE PRN IJ 12/10/24 22:30 12/11/24 01:04 20 ML Acetaminophen 650 mg Q4HP PRN PO 12/11/24 05:45 Ondansetron HCl 4 mg Q4HPRN PRN PO 12/11/24 05:45 Docusate Sodium 200 mg HS PO 12/11/24 22:00 laboratory and microbiology Laboratory Tests 12/10/24 22:40 Test 12/10/24 22:40 Range/Units Serum Glucose 91 74-106 mg/dL Objective O: A&O x3 NAD. Afebrile, VSS Chest: heart and lung sounds normal. Breasts: Nipples intact w/o cracks or soreness Abdomen: normal BS, soft, non-tender, no rebound or guarding, fundus firm @ U, lochia minimal Perineum:- no edema, or erythema, Extremities: no edema or tenderness Lochia - minimal Assessment/Plan A/P 24 yo now ppd# 0 s/p doing well. Blood Type:O Rh: Positive Breast feeding Rubella Immune Pain control with oral medications Bowel regimen: Increase fluid intake and fiber in diet, Laxative PRN PP BCM Plan: Undecided Discharge plan: May discharge home tomorrow if condition remains stable Plan discussed with: Patient, Spouse Visit Coding OBGYN Date of Service: Dec 11, 2024 Billing Provider: NICOLE DAILEY CNM JIGMAKER Common Visit Codes: [id number] INP/OBS CARE(HIGH) NICOLE DAILEY CNM Dec 11, 2024 06:59
[2024-12-11 07:00] VITALS: BP 115/58; PULSE 87; RESP 16; TEMP 97.9; O2SAT 96
[2024-12-11 11:00] VITALS: BP 113/61; PULSE 76; RESP 18; TEMP 98.2; O2SAT 97
[2024-12-11 19:00] VITALS: BP 111/58; PULSE 86; RESP 16; TEMP 98.4; O2SAT 98
[2024-12-11] MEDS: DOCUSATE SOD 100 MG CAP PO SCH (21:15)
[2024-12-11 23:00] VITALS: BP 106/59; PULSE 84; RESP 16; TEMP 98.1; O2SAT 97
[2024-12-12 03:00] VITALS: BP 104/55; PULSE 86; RESP 16; TEMP 98.1; O2SAT 97
--- NOTE | 2024-12-12 05:57 | DVHPN2 ---
Chief Complaints Patient reports: No new complaints, Feels better, Other (contractions and pressure feels stronger) Nursing reports: No new complaints, No abdominal pain, No chest pain, No dizziness, No cough Objective Vitals Vital Signs Date Time Temp Pulse Resp B/P (MAP) Pulse Ox O2 Delivery O2 Flow Rate FiO2 12/12/24 03:00 98.1 86 16 104/55 (71) 97 98.1 12/11/24 19:00 Room Air 12/11/24 06:43 0.0 Medications Current Medications Medications (Trade) Dose Ordered Sig/Jayesh Route PRN Reason Start Time Stop Time Status Last Admin Docusate Sodium (Colace Capsule) 200 mg HS PO 12/11/24 22:00 12/11/24 21:15 General: Normal Neck: Normal Lungs: Normal Cardiovascular: Normal Abdominal: Normal (Uterus 12 weeks size firm minimal lochia) Musculoskeletal: Normal Extremities: Normal Skin: Normal Neurological: Normal Studies Laboratory Tests 12/10/24 22:40 Test 12/10/24 22:40 Range/Units Serum Glucose 91 74-106 mg/dL Ass/Plan Assessment Status post stable for discharge home requesting discharge home Plan See discharge summary see discharge orders TERA KERN DO Dec 12, 2024 05:57
--- NOTE | 2024-12-12 05:59 | DVHDS2 ---
Discharge Summary Date of Admission Dec 10, 2024 at 22:04 Date of Discharge: Dec 12, 2024 Admitting Diagnosis Status post Wounds: None Labs/Diagnostic Data: Laboratory Results Test 12/10/24 22:40 12/10/24 22:15 White Blood Count 11.1 10^3/uL (4.4-10.8) Red Blood Count 4.60 10^6/uL (4.0-5.20) Hemoglobin 13.5 g/dL (12.2-16.2) Hematocrit 39.6 % (36.0-46.0) Mean Corpuscular Volume 86.1 fL (80.0-100.0) Mean Corpuscular Hemoglobin 29.5 pg (28.0-32.0) Mean Corpuscular Hemoglobin Concent 34.2 g/dL (32.0-36.0) Red Cell Distribution Width 13.5 % (11.8-14.3) Platelet Count 165 10^3/uL (140-450) Mean Platelet Volume 10.8 fL (6.9-10.8) Neutrophils (%) (Auto) 77.4 % (37.0-80.0) Lymphocytes (%) (Auto) 15.5 % (10.0-50.0) Monocytes (%) (Auto) 5.8 % (0.0-12.0) Eosinophils (%) (Auto) 0.8 % (0.0-7.0) Basophils (%) (Auto) 0.5 % (0.0-2.0) Neutrophils # (Auto) 8.6 10 ^3/uL (1.6-8.6) Lymphocytes # (Auto) 1.7 10 ^3/uL (0.4-5.4) Monocytes # (Auto) 0.6 10 ^3/uL (0-1.3) Eosinophils # (Auto) 0.1 10 ^3/uL (0-0.8) Basophils # (Auto) 0.1 10 ^3/uL (0-0.2) Nucleated Red Blood Cells 0.0 % Prothrombin Time 9.8 sec (9.3-11.8) Prothrombin Time INR 0.92 (0.9-1.15) Activated Partial Thromboplast Time 31.0 SEC (24.5-34.5) Sodium Level 139 mmol/L (136-145) Potassium Level 3.7 mmol/L (3.5-5.1) Chloride Level 108 mmol/L (98-107) Carbon Dioxide Level 20 mmol/L (20-31) Anion Gap 11 (5-15) Blood Urea Nitrogen 8 mg/dL (9-23) Creatinine 0.68 mg/dL (0.550-1.02) Glomerular Filtration Rate Calc 126 mL/min (>90) BUN/Creatinine Ratio 11.8 (10.0-20.0) Serum Glucose 91 mg/dL (74-106) Calcium Level 9.1 mg/dL (8.7-10.4) Total Bilirubin 0.4 mg/dL (0.2-1.0) Aspartate Amino Transferase (AST) 20 U/L (13-40) Alanine Aminotransferase (ALT) 15 U/L (7-40) Alkaline Phosphatase 124 U/L (46-116) Total Protein 6.4 g/dL (5.7-8.2) Albumin 4.1 g/dL (3.2-4.8) Treponema pallidum Antibody Non-reactive (Negative) Hepatitis C Antibody Negative (Negative) Urine Color Colorless (Yellow) Urine Clarity Clear (Clear) Urine pH 6.5 (5.0-9.0) Urine Specific [place] 1.006 (1.001-1.035) Urine Protein Negative (Negative) Urine Ketones Negative (Negative) Urine Blood Trace /uL (Negative) Urine Nitrite Negative (Negative) Urine Bilirubin Negative (Negative) Urine Urobilinogen Normal mg/dL (Negative) Urine Leukocyte Esterase Negative /uL (Negative) Urine RBC 1 /hpf (0 - 4) Urine Microscopic WBC 2 /HPF (0-5) Urine Squamous Epithelial Cells Few /hpf (<5) Urine Amorphous Crystals Few /hpf (None Seen) Urine Bacteria Few /hpf (None Seen) Urine Glucose Normal mg/dL (Normal) Urine Opiates Screen Neg (NEGATIVE) Urine Fentanyl Screen Neg (NEGATIVE) Urine Barbiturates Screen Neg (NEGATIVE) Urine Phencyclidine Screen Neg (NEGATIVE) Urine Amphetamines Screen Neg (NEGATIVE) Urine Benzodiazepines Screen Neg (NEGATIVE) Urine Cocaine Screen Neg (NEGATIVE) Urine Cannabinoids Screen Neg (NEGATIVE) Other Laboratory Tests 12/10/24 22:40 Brief Hx & Hospital Course: Patient underwent without complications stable for discharge home and requesting discharge home today Consults/Reason for consult None Condition at Discharge: Good Final Diagnosis/Problems List Status post Discharge Disposition: Home Discharge Instruct/Medications Activity: Light activity Activity comment: Pelvic rest 6 weeks Follow Up/Referral: Primary Ob 2 weeks or p.r.n. Scheduled Hydroxyzine Pamoate (Vistaril), 1 CAP PO BID Prednisone (Prednisone), 40 MG PO DAILY Vit W/ Ferrous Fumara ( One Daily), 1 TAB PO DAILY, (Reported) Triamcinolone Acetonide (Triamcinolone Acetonide), 1 APPLIC TOP BID Discharge Statement: "Patient was advised to return to the ER or call 911 if any headaches, dizziness, shortness of breath, chest pain, abdominal pain, bleeding, fevers, or worsening of medical condition. Patient was counseled about treatment plan, medications, possible side effects, patientverbalized understanding. All questions were answered to the best of my ability. This discharge took greater then 30 minutes in planning, reviewing documentation, counseling the patient, and discussing with other team members." ASSESSMENT ASSESSMENT Assessment Visit Coding OBGYN Date of Service: Dec 12, 2024 Billing Provider: TERA KERN DO INSTRUMENT TECHNOLOGIST Common Visit Codes: 18404-QIT/OBS SAME DATE (HIGH) INSTRUMENT TECHNOLOGIST Procedure Codes: 55896-ISS DEL INCLUDING TERA KERN DO Dec 12, 2024 05:59
[2024-12-12] MEDS: ACETAMINOPHEN 325 MG TAB PO PRN (06:41)
[2024-12-12 06:49] VITALS: BP 111/66; PULSE 73; RESP 16; TEMP 97.9; O2SAT 97
[2024-12-13 03:07] LABS: Chlamydia Trachomatis, NAA Negative (Negative); Neisseria gonorrhoeae, NAA Negative (Negative)
== END 2024-12-12 12:25 | disposition home or self-care (01) | DRG 560 ==
LOC: LDRP 21:34 → OBSVTOIN 22:04 → LDRP 22:04
PROVIDERS: ADMIT Obstetrics & Gynecology; ATTEND Obstetrics & Gynecology
PROC: 10E0XZZ Delivery of Products of Conception, External Approach (ICD-10-PCS; principal; 2024-12-11)
DX: O48.0 Post-term pregnancy (principal); Z37.0 Single live birth; O69.81X0 Labor and delivery complicated by cord around neck, without compression, not applicable or unspecified; Z3A.40 40 weeks gestation of pregnancy; Z88.6 Allergy status to analgesic agent
CPT/HCPCS: 36415; 59025; 59409; 80053; 80307; 81001; 81002; 85025; 85610; 85730; 86780; 86803; 86850; 86900; 86901; 94760; 96360; 96361; 96365; 96366; 96372; G0378; J2590